=== PATIENT | male | born 1985 | race Caucasian/White ===

== ENCOUNTER → 2021-12-17 | Outpatient (CLI) | payer MEDICAID | LOC: M RAD 10:49 | PROVIDERS: ATTEND Physician Assistant | DX: S27.899A Unspecified injury of other specified intrathoracic organs, initial encounter (principal); Y93.64 Activity, baseball; X58.XXXA Exposure to other specified factors, initial encounter; Y99.8 Other external cause status; Y92.9 Unspecified place or not applicable ==